=== PATIENT | female | born 1980 | race Caucasian/White ===

== ENCOUNTER 2019-08-18 07:59 | Outpatient (CLI) | payer OTHER, SELFPAY ==
--- NOTE | ~2019-08-18 | US_ITS ---
EXAMINATION: US arterial ankle brachial ind DATE: 08/18/2019 09:01 INDICATION: Lower limb pain and swelling. TECHNIQUE: Segmental pressures and plethysmographic and Doppler waveforms of the brachial and lower e xtremity arteries were obtained. COMPARISON: None. FINDINGS: Right and left brachial artery pressures of 115 mm Hg and 123 mm Hg, respectively, are concordant (no rmal difference <= 30 mmHg). The right ankle-brachial index (MANJU) is 1.52 (normal >= 0.9-1.0). Arterial Doppler waveforms are biph asic with brisk systolic upstrokes at both the right posterior tibial and dorsalis pedis arteries. The left MANJU is 0.90. Arterial Doppler waveforms are biphasic with brisk systolic upstrokes at both t he left posterior tibial and dorsalis pedis arteries. IMPRESSION: 1. No significant arterial occlusive disease to the right lower limb with normal right MANJU. 2. Possible arterial occlusive disease the left lower limb with borderline left MANJU. Reviewed, dictated and finalized at location A. IMPRESSION: 1. No significant arterial occlusive disease to the right lower limb with yuko l right MANJU. 2. Possible arterial occlusive disease the left lower limb with borderline left MANJU.
== END 2019-08-18 08:00 | disposition home or self-care (01) ==
LOC: CHSIMG 08:00
PROVIDERS: PCP Family Medicine; Visit Provider Family Medicine
DX: M79.605 Pain in left leg (principal); M25.569 Pain in unspecified knee; M54.5 Low back pain
CPT/HCPCS: 93922

== ENCOUNTER 2019-08-22 07:41 | Outpatient (CLI) | payer OTHER, SELFPAY ==
--- NOTE | ~2019-08-22 | XR_ITS ---
XR lumbar spine 2-3V DATE: 08/22/2019 08:18 INDICATION: Low back pain, knee pain TECHNIQUE: AP, lateral, coned lateral lumbosacral views COMPARISON: None FINDINGS: There is normal alignment of the lumbar spine. No fracture or bone destruction or spondylol isthesis is evident. The included lower thoracic and lumbar pedicles are intact. There is moderately severe degenerative disc disease at L4-5. There is mild degenerative disc disease at L2-3 and L3-4. The sacroiliac joints are intact. Surgical clips, right upper quadrant, consistent with cholecystectomy. There is a prominent of fecal material in the right colon in particular. IMPRESSION: Degenerative disc disease, most pronounced at L4-5 Reviewed, dictated and finalized at location A.
--- NOTE | ~2019-08-22 | XR_ITS ---
XR knee LT 3V 08/22/2019 08:18 INDICATION: Left knee pain PROCEDURE: 3 views left knee COMPARISON: No prior studies for comparison. FINDINGS: Fracture, dislocation or subluxation is not identified. No significant joint effusion. Mild osteoarthritis. The soft tissues appear within normal limits. No foreign bodies are identified. IMPRESSION: 1: Mild osteoarthritis of the patellofemoral compartment. Reviewed, dictated and finalized at location B.
== END 2019-08-22 07:42 | disposition home or self-care (01) ==
LOC: CHSIMG 07:43
PROVIDERS: PCP Family Medicine; Visit Provider Family Medicine
DX: M79.605 Pain in left leg (principal); M25.569 Pain in unspecified knee; M54.5 Low back pain
CPT/HCPCS: 72100; 73562

== ENCOUNTER 2019-08-29 13:32 | Outpatient (RCR) | payer OTHER, SELFPAY ==
--- NOTE | 2019-08-29 14:41 | PTOPEVAL ---
Thank you for referring Kayla Jack to [facility]. Please review, sign, date and return this plan of care JOS. I agree with and certify that the following plan of care is medically necessary. Referring Physician Date Admitting Provider: Attending Provider: Mo Acosta MD Referring Provider: *PT Outpatient Evaluation Start: 08/29/19 14:04 Freq: Status: Active Protocol: Document 08/29/19 14:04 SHOBHA (Rec: 08/29/19 14:39 [email or web address] [email or web address]) Therapy Assessment Status Assessment Status Assessment Status Evaluation Outpatient Past Medical History Gastrointestinal History Hx Cholecystectomy Yes Reproductive History Hx Section Yes Hx Tubal Ligation Yes Psychosocial History Hx Bipolar Disorder Yes Hx Other Psychiatric Disorders Yes: Borderline personality disorder Evaluation Information Problem Diagnosis back pain and knee pain Onset 08/24/18 Subjective Information Pt. reports that she has had Query Text:As Reported By Patient/ on/off knee pain and back pain Family for years. She reports recently noting inflammation in the left leg. she reports that she has chronic pain and she states that she has trouble dealing with the pain. She reports her back pain goes across the low back and gets very tender. She states that knee pain is located in front and back of the left knee. she reports her low back pain is increased with standing or sitting too long. She states that stairs, standing and walking increase her left knee pain. she reports that she has gained 60 lbs. in the past year. She reports that she uncertain what her goal is at this time. Diagnostic Tests X-Rays For This Problem Yes MRI For This Problem Yes Prior Level of Function Activity Level (Last 3 Months) Occupation disability Hand Dominance Right Activity of Daily Living Ability Independent Indoor/Home Mobility Independent Community Mobility Independent Stairs Ability Independent Functional Cognition (Planning, Shopping Independent
--- NOTE | 2019-11-20 18:02 | PCPTNOTE ---
Pt. attended a total of 3 treatment sessions from 08/29/19 to 09/04/19. She has failed to return to the clinic and has not contacted the clinic. Refer to last daily note for pt. discharge status. Steven Hurd, MPT
== END 2019-09-04 10:30 | disposition home or self-care (01) ==
LOC: CHSPT 13:32
PROVIDERS: PCP Family Medicine; Visit Provider Family Medicine
DX: M54.5 Low back pain (principal); E66.9 Obesity, unspecified
CPT/HCPCS: 97014; 97110; 97162; G0283